=== PATIENT | female | born 2000 | race Asian ===

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

== ENCOUNTER 2021-08-06 14:21 | Emergency (ER) | payer OTHER ==
[~2021-08-06] VITALS: Ht 172.7 cm; Wt 65.9 kg
[~2021-08-06 14:21] MED LIST: EPIPEN 2-PAK1 MG/ML IM
[2021-08-06 14:47] VITALS: TEMP 98.1
[2021-08-06] MEDS ORDERED: PREDNISONE20 MG PO (16:45)
[2021-08-06] MEDS ORDERED: EPIPEN 2-PAK1 MG/ML IM (16:45)
[2021-08-06 16:59] VITALS: BP 107/73; PULSE 80
== END 2021-08-06 17:01 | disposition home or self-care (01) ==
LOC: COL.ER 14:21
DX: T78.40XA Allergy, unspecified, initial encounter (principal)
CPT/HCPCS: J1200; J2930; J7030